=== PATIENT | male | born 1930 | race Caucasian/White ===

== ENCOUNTER 2021-02-25 10:20 | Emergency (ER) | payer MEDICARE ==
[~2021-02-25] VITALS: Ht 172.7 cm; Wt 99.8 kg
[2021-02-25 10:29] VITALS: BP_SYST 209
[2021-02-25] MEDS ORDERED: hydrALAZINE HCL 20 MG/ML VIAL IVP ONE (10:30)
[2021-02-25] MEDS ORDERED: ASPIRIN 81 MG TAB.CHEW PO ONE (10:30)
[2021-02-25 11:26] LABS: BASOPHILS % (AUTO) 0.6 % (0.0-2.0); EOSINOPHILS # (AUTO) 0.1 K/uL (0.0-0.4); EOSINOPHILS % (AUTO) 1.8 % (0.0-4.0); HEMOGLOBIN 13.8 g/dL (14.0-18.0); LYMPHOCYTES % (AUTO) 25.4 % (20.5-51.5); MEAN CORPUSCULAR HEMOGLOBIN 31 pg (27-31); MEAN CORPUSCULAR HGB CONC 34 % (32-36); MEAN CORPUSCULAR VOLUME 93 fL (79.0-98.0); MONOCYTES # (AUTO) 0.3 K/uL (0.0-1.0); MONOCYTES % (AUTO) 7.3 % (1.7-9.3); NEUTROPHILS # (AUTO) 2.7 K/uL (1.8-7.7); NEUTROPHILS % (AUTO) 64.9 % (40.0-70.0); PLATELET COUNT (AUTO) 103 K/uL (130-430); RED BLOOD CELL COUNT(AUTO) 4.42 MIL/uL (4.2-6.2); RED CELL DISTRIBUTION WIDTH 13.4 % (9.0-15.0); WHITE BLOOD COUNT (AUTO) 4.1 K/uL (4.8-10.8)
[2021-02-25 11:36] LABS: ANION GAP 6 (5-15); CALCIUM 9.5 mg/dL (8.4-11.0); CHLORIDE 105 mmol/L (98-107); CREATININE 1.45 mg/dL (0.55-1.30); GLUCOSE 111 mg/dL (70-99); POTASSIUM 5.1 mmol/L (3.5-5.1); SODIUM SERUM 141 mmol/L (136-145); UREA NITROGEN, BLOOD 23 mg/dL (8-21)
[2021-02-25 11:41] LABS: ALANINE AMINOTRANSFERASE 24 U/L (12-78); ALBUMIN 3.2 g/dL (3.4-4.8); ASPARTATE AMINOTRANSFERASE 21 U/L (10-37); TOTAL BILIRUBIN 0.8 mg/dL (0.0-1.0)
[2021-02-25] MEDS ORDERED: NITROGLYCERIN 1 INCH (GM) OINT. TP ONE (12:00)
[2021-02-25] MEDS ORDERED: ASPIRIN 325 MG TABLET PO ONE (12:00)
[2021-02-25 15:43] VITALS: BP_SYST 158
== END 2021-02-25 15:36 | disposition short-term general hospital (02) ==
LOC: SED 10:20
DX: R07.89 Other chest pain (principal); I10 Essential (primary) hypertension; I48.91 Unspecified atrial fibrillation; N28.9 Disorder of kidney and ureter, unspecified
CPT/HCPCS: 36415; 71045; 80053; 83880; 84484; 85025; 93005; 96374; 99285; J0360